=== PATIENT | female | born 1965 | race Caucasian/White ===

== ENCOUNTER 2022-10-15 12:05 | Emergency (ER) | payer MEDICARE, SELFPAY ==
[2022-10-15 12:12] VITALS: BP 92/68; PULSE 77; RESP 20; TEMP 36.7; O2SAT 100
--- NOTE | 2022-10-15 12:36 | ED.URI ---
HPI - URI/Sore Throat General Chief Complaint: Upper Respiratory Infection Stated Complaint: weak History of Present Illness HPI Narrative: Patient presents with a 3 day history of fever body aches generalized malaise. 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 No shortness of breath no chest pain. Related Data Home Medications Medication Instructions Recorded Confirmed dextroamphetamine-amphetamine ER PO 10/15/22 30 mg 24hr capsule,extend release diclofenac sodium 75 mg mg PO 10/15/22 tablet,delayed release hydroxychloroquine 200 mg tablet mg PO 10/15/22 methotrexate sodium 2.5 mg tablet mg 10/15/22 modafinil 200 mg tablet mg 10/15/22 omeprazole 20 mg capsule,delayed mg 10/15/22 release pregabalin 75 mg capsule mg 10/15/22 sertraline 50 mg tablet mg 10/15/22 tizanidine 4 mg tablet mg 10/15/22 tramadol 50 mg tablet mg 10/15/22 Allergies Allergy/AdvReac Type Severity Reaction Status Date / Time No Known Allergies Allergy Unverified 10/05/18 18:31 Review of Systems Review of Systems: CONSTITUTIONAL: Denies chills, or sweats. Reports fever and generalized body aches EYES: Denies visual changes, redness, or discharge. ENT: Denies otalgia. Reports nasal congestion runny nose and sore throat CARDIOVASCULAR: Denies chest pain, palpitations, or edema. RESPIRATORY: Denies dyspnea. Reports occasional cough GASTROINTESTINAL: Denies abdominal pain, nausea, vomiting, or diarrhea. GENITOURINARY: Denies dysuria or hematuria. SKIN: Denies rash or itching. MUSCULOSKELETAL: Denies back pain, joint pain, or myalgia. Reports generalized body aches NEUROLOGIC: Denies headache, numbness, or weakness. PSYCHIATRIC: Denies anxiety or depression. PMFSH Comments At time of signature, agree with nursing past medical, surgical, social and family history. There is no relevant family history pertinent to the presenting complaint Exam Narrative: The patient is a well-developed, well-nourished in no acute distress. SKIN: Skin is warm and dry without erythema, swelling or exudate. There is good turgor. No tenting. HEAD: Atraumatic. Normocephalic. No temporal or scalp tenderness. EYES: Moist and bright. Sclera and conjunctivae normal. No discharge. PERRLA. Extraocular motions intact. Gross visual acuity intact. EARS: Pinna is normal shape and contour. Clear external auditory canals. TM pearly ibarra with good cone of light, no erythema or suppuration. Bilateral cerumen noted no gross hearing deficit. NOSE: pink, moist mucosa with good air movement. Clear rhinorrhea without nasal flaring. Septum midline. Mouth: moist mucous membranes. THROAT; mild erythema noted to posterior oropharynx with moderate postnasal drainage. Without exudate or ulceration.. Uvula midline. Normal movement of soft palate. NECK: Supple and nontender with full range of motion without discomfort. No meningeal signs. LUNGS: Equal and bilateral breath sounds without wheezes, rales or rhonchi. CHEST: The chest wall is without retractions or use of accessory muscles. HEART: Has a regular rate and rhythm without murmur, gallops, click or rub. ABDOMEN: Soft, nontender with positive active bowel sounds. No rebound tenderness. EXTREMITIES: Without cyanosis, clubbing or edema. Equal 2+ distal pulses and 2 second capillary refill noted. NEUROLOGIC: alert, active, . The patient moves all extremities with normal muscle strength. Normal muscle tone is noted. Normal coordination is noted. NO focal neurological findings noted. Course Course Level of Care: Express Care Visit Vital Signs Vital signs: Vital Signs Temperature 36.7 C 10/15/22 12:12 Pulse Rate 77 10/15/22 12:12 Respiratory Rate 20 10/15/22 12:12 Blood Pressure 92/68 L 10/15/22 12:12 Pulse Oximetry 100 10/15/22 12:12 Oxygen Delivery Room Air 10/15/22 12:12 Temperature 36.7 C 10/15/22 12:12 Pulse Rate 77 10/15/22 12:12
== END 2022-10-15 12:48 | disposition home or self-care (01) ==
PROVIDERS: Emergency Provider Nurse Practitioner Family
DX: J10.1 Influenza due to other identified influenza virus with other respiratory manifestations (principal)
CPT/HCPCS: 87804; 99203; G0463

== ENCOUNTER 2024-09-05 17:10 | Emergency (ER) | payer MEDICARE, SELFPAY ==
--- NOTE | ~2024-09-05 | XR_ITS ---
XR wrist RT min 3V DATE: 09/05/2024 17:55 INDICATION: Lateral pain and swelling. History of rheumatoid arthritis. TECHNIQUE: 4 views COMPARISON: None FINDINGS: There is a suggestion of a subtle nondisplaced distal radial fracture. The distal ulna is intact. Normal alignment at the radiocarpal joint. No carpal bone fracture is evident. No erosive change or chondrocalcinosis is noted. IMPRESSION: Suggestion of subtle nondisplaced distal radial fracture; consider short-term follow-up r adiographs to confirm or exclude fracture Reviewed, dictated and finalized at location A. IMPRESSION: Suggestion of subtle nondisplaced distal radial fracture; consider short-term follow-up radiographs to confirm or exclude fracture
[2024-09-05 17:22] VITALS: BP 127/75; PULSE 94; RESP 16; TEMP 36.6; O2SAT 99
[2024-09-05 17:24] VITALS: BP 127/75; PULSE 94; RESP 16; TEMP 36.6; O2SAT 99
--- NOTE | 2024-09-05 17:29 | ED.UPPEXIN ---
HPI - Extremity Injury (Upper) General Chief Complaint: Extremity Injury, Upper Stated Complaint: Right Wrist Injury Time Seen by Provider: 09/05/24 17:29 Source: patient, RN notes reviewed and old records reviewed Mode of arrival: ambulatory Limitations: no limitations History of Present Illness HPI narrative: 59 year old female who presents to express care with complaints of stumbling over concrete slap at [employer] football game and falling onto her right hand and wrist 2 hours prior to arrival.Patient has noted swelling and bruising to the base of her right thumb an radial side of hand and wrist with some bruising noted. Patient has gold ring on thumb which she states that she has not been able to remove before injury and can't at this time refuses to have ring cut off was her fathers. Patient has strong radial pulse, is able to move all fingers on own power but thumb is limited does have history of rheumatoid arthritis MD complaint: injury to: right and wrist (radial aspect) Onset (ago): hour(s) (2) Other injuries: none Severity scale (1-10): 5 Treatments prior to arrival: cold therapy Related Data Home Medications Medication Instructions Recorded Confirmed dextroamphetamine-amphetamine ER PO 10/15/22 30 mg 24hr capsule,extend release diclofenac sodium 75 mg mg PO 10/15/22 tablet,delayed release modafinil 200 mg tablet mg 10/15/22 omeprazole 20 mg capsule,delayed mg 10/15/22 release pregabalin 75 mg capsule mg 10/15/22 sertraline 50 mg tablet mg 10/15/22 tizanidine 4 mg tablet mg 10/15/22 tramadol 50 mg tablet mg 10/15/22 Otc Vitamin D 09/05/24 Vitamin B12 09/05/24 colchicine 0.6 mg tablet mg 09/05/24 ferrous sulfate 325 mg (65 mg 325 mg PO DAILY 09/05/24 09/05/24 iron) tablet (Iron (ferrous sulfate)) folic acid 1 mg tablet 09/05/24 methylprednisolone 4 mg tablet mg 09/05/24 oxybutynin chloride 09/05/24 upadacitinib 15 mg tablet,extended 15 mg PO DAILY 09/05/24 09/05/24 release 24 hr (Rinvoq) Allergies Allergy/AdvReac Type Severity Reaction Status Date / Time No Known Allergies Allergy Unverified 09/05/24 17:24 Review of Systems Review of Systems: CONSTITUTIONAL: Denies fever, chills, or sweats. EYES: Denies visual changes, redness, or discharge. ENT: Denies rhinorrhea, congestion, sore throat, or otalgia. CARDIOVASCULAR: Denies chest pain, palpitations, or edema. RESPIRATORY: Denies cough or dyspnea. GASTROINTESTINAL: Denies abdominal pain, nausea, vomiting, or diarrhea. GENITOURINARY: Denies dysuria or hematuria. SKIN: Denies rash or itching. MUSCULOSKELETAL: Denies back pain, pain to right base of thumb, radial side of hand and wrist with swelling, or myalgia. NEUROLOGIC: Denies headache, numbness, or weakness. PSYCHIATRIC: Denies anxiety or depression. All systems reviewed & are unremarkable except as noted in HPI and below PMFSH Past Medical History Medical History (Updated 09/08/24 @ 14:30 by Julisa Martins NP) Anxiety and depression Fracture of right forearm GERD (gastroesophageal reflux disease) Narcolepsy Rheumatoid arthritis Surgical History Surgical History (Updated 09/08/24 @ 14:16 by Julisa Martins NP) H/O: hysterectomy History of left knee replacement Social History Social History (Updated 09/08/24 @ 14:23 by Julisa Martins NP) Smoking status: Current every day smoker Tobacco type: e-cigarettes/vaping Alcohol intake: unknown Substance use type: does not use Gender identity (if verbalized by the patient): Female Comments At time of signature, agree with nursing past medical, surgical, social and family history. There is no relevant family history pertinent to the presenting complaint Exam Narrative: GENERAL: Well-appearing, well-nourished, and in mild acute distress related to injury. HEAD: Normocephalic, atraumatic. EYES: PERRLA and EOMI. ENT: Nares clear, no rhinorrhea or epistaxis. Mucous membranes moist. NECK: Supple. no lymphadenopathy CHEST: Clear to auscultation. No respiratory distress SAo2 99% on room air HEART: Regular rate and rhythm. No murmur heard. Normal peripheral pulses. ABDOMEN: Soft, nontender, nondistended, normal active bowel sounds. EXTREMITIES: Normal range of motion. No edema.Exception noted to right base of thumb and radial side of hand and wrist with bruising and pain from fall. able to move fingers on own power with limited movement of thumb. Patient has strong right radial pulse, nail beds osei briskly denies any tingling or numbness to fingers. Unable to remove band on thumb refuses to have cut off states was her father's. SKIN: Warm, dry, no rash. NEURO: No focal deficits. Alert and oriented x3. Course Course Emergency Course: Patient is aware of diagnosis, understands and agrees to treatment plan.? Anticipatory guidance given.? Patient agrees to follow-up as directed and is aware of reasons to seek care at the emergency department. Portions of this record may have been created with voice recognition software Level of Care: Express Care Visit Vital Signs Vital signs: Vital Signs Temperature 36.6 C 09/05/24 17:22 Pulse Rate 94 09/05/24 17:22 Respiratory Rate 16 09/05/24 17:22 Blood Pressure 127/75 09/05/24 17:22 Pulse Oximetry 99 09/05/24 17:22 Oxygen Delivery Room Air 09/05/24 17:22 Temperature 36.6 C 09/05/24 17:24 Pulse Rate 94 09/05/24 17:24 Respiratory Rate 16 09/05/24 17:24 Blood Pressure 127/75 09/05/24 17:24 Pulse Oximetry 99 09/05/24 17:24 Oxygen Delivery Room Air 09/05/24 17:24 Reviewed Procedures Orthopedic Splinting/Casting wrist: Splinting/Casting Date: 09/05/24 Splinting/Casting Time: 18:44 Side: right Upper Extremity Injury Location: wrist Upper Extremity Immobilizer: volar splint Splint: customized in ED OCL: short arm Pre-Procedure Neuro Vascular Exam: normal Post-Procedure Neuro Vascular Exam: normal Other Orthopedic Equipment: other (sling) Additional Comments: Patient tolerated splinting of right wrist with volar short arm splint and arm placed in sling neuro-vascular intact MDM - Extremity Injury (Upper) Differential Diagnosis Differential diagnosis: Likely fracture of wrist, fracture of hand and other (thumb fracture, contusion to right hand) Medical Records Attestation: I reviewed the patient's medical records. Imaging Data Attestation: I personally reviewed and interpreted this imaging study as follows: My impression: subtle nondisplaced right distal radial fracture recommend x-ray follow up Radiologist's impression: [facility] [place] [address] [id number] XRay Report Signed Patient: Harriet Lr : 1965 MR#: [id number] Age: 59 Acct:[id number] Loc: EXP ADM Date: 09/05/24Attending Dr: Ordering Physician: Julisa Martins APRN Date of Service: 09/05/24 Procedure(s): XR wrist RT min 3V Accession Number(s): [id number] cc: Julisa Martins [employer]~ XR wrist RT min 3V DATE: 09/05/2024 17:55 INDICATION: Lateral pain and swelling. History of rheumatoid arthritis. TECHNIQUE: 4 views COMPARISON: None FINDINGS: There is a suggestion of a subtle nondisplaced distal radial fracture. The distal ulna is intact. Normal alignment at the radiocarpal joint. No carpal bone fracture is evident. No erosive change or chondrocalcinosis is noted. IMPRESSION: Suggestion of subtle nondisplaced distal radial fracture; consider short-term follow-up radiographs to confirm or exclude fracture Reviewed, dictated and finalized at location A. Dictated By: Barry Álvarez MD 09/05/24 1802 Signed By: <Electronically signed by Barry Álvarez MD in OV> Critical Care Time Critical Care Time Critical Care Time: No Discharge Plan Discharge Clinical Impression: Fracture of wrist Qualifiers: Encounter type: initial encounter Fracture type: closed Laterality: right Qualified Code(s): S62.101A - Fracture of unspecified carpal bone, right wrist, initial encounter for closed fracture Patient Disposition: Home, Self-Care Condition: Stable Instructions: Wrist Fracture in Adults (ED) Additional Instructions: orthopedic splint as directed for comfort until seen by Ortho Tylenol for lesser pain Ibuprofen regularly for the next 2-3 days for the inflammation Follow-up with orthopedic surgeon of her choice sees orthopedic MD at [facility] Follow-up with PCP if further problems or concerns Ice to the area 20-30 minutes 4-6 times a day Elevate above heart If your symptoms persist, change or worsen significantly before you can contact your personal physician then please, without delay, go to the emergency department for further evaluation. Follow-up with PCP in 7-10 days or sooner if needed disc of x-ray film and report given to patient Prescriptions: No Action tizanidine 4 mg tablet tramadol 50 mg tablet modafinil 200 mg tablet omeprazole 20 mg capsule,delayed release(DR/EC) diclofenac sodium 75 mg tablet,delayed release (DR/EC) PO dextroamphetamine-amphetamine 30 mg capsule,extended release 24hr PO sertraline 50 mg tablet pregabalin 75 mg capsule methylprednisolone 4 mg tablet folic acid 1 mg tablet colchicine 0.6 mg tablet ferrous sulfate [Iron (ferrous sulfate)] 325 mg (65 mg iron) Tablet 325 mg PO DAILY Rinvoq 15 mg Tablet Extended Release 24 Hr 15 mg PO DAILY Otc Vitamin D oxybutynin chloride Vitamin B12 Follow-up/Referrals: PHYSICIAN NOT ON STAFF,NONSTAFF [Primary Care Provider] - Time of Disposition: 18:50 Quality Xavier Coma Scale Eyes: Open Verbal: Oriented and Alert Motor: Follows Commands Xavier Coma Total Score: 15
== END 2024-09-05 18:52 | disposition home or self-care (01) ==
PROVIDERS: Emergency Provider Registered Nurse
DX: S62.101A Fracture of unspecified carpal bone, right wrist, initial encounter for closed fracture (principal); W01.0XXA Fall on same level from slipping, tripping and stumbling without subsequent striking against object, initial encounter; F17.290 Nicotine dependence, other tobacco product, uncomplicated; K21.9 Gastro-esophageal reflux disease without esophagitis; R06.9 Unspecified abnormalities of breathing; Z96.652 Presence of left artificial knee joint
CPT/HCPCS: 29125; 73110; 99214; A4565; G0463

== ENCOUNTER 2024-09-24 15:35 | Emergency (ER) | payer MEDICARE, SELFPAY ==
[2024-09-24 15:58] VITALS: BP 109/72; PULSE 94; RESP 18; TEMP 36.9; O2SAT 100
--- NOTE | 2024-09-24 16:23 | ED.LOWEXIN ---
HPI - Extremity Injury (Lower) General Chief Complaint: Extremity Injury, Lower Stated Complaint: Wound Check/Left Knee Time Seen by Provider: 09/24/24 16:23 Source: patient, RN notes reviewed and old records reviewed Mode of arrival: ambulatory Limitations: no limitations History of Present Illness HPI Narrative: 59-year-old female to [facility] Care with complaint of wound to left anterior knee. Patient reports history of total knee replacement in March. Patient states that she fell 2 weeks ago and broke her right wrist and required a small abrasion to left anterior knee lateral to surgical incision site. patient reports she has been keeping the abrasion clean and dry but that his gotten irritated with her paints rubbing against it. Patient states that yesterday she noticed increased redness, warmth and swelling. Patient also endorsing acute tenderness. Patient states that she called her orthopedic surgeon today and was told to just wait until her standing appointment next . Patient states she has to concern for infection and did not want to wait another week. Patient denies fever , drainage from wound, chills, allergies. Patient resting comfortably in exam room in no acute distress. Related Data Home Medications Medication Instructions Recorded Confirmed dextroamphetamine-amphetamine ER PO 10/15/22 30 mg 24hr capsule,extend release diclofenac sodium 75 mg mg PO 10/15/22 tablet,delayed release modafinil 200 mg tablet mg 10/15/22 omeprazole 20 mg capsule,delayed mg 10/15/22 release pregabalin 75 mg capsule mg 10/15/22 sertraline 50 mg tablet mg 10/15/22 tizanidine 4 mg tablet mg 10/15/22 tramadol 50 mg tablet mg 10/15/22 Otc Vitamin D 09/05/24 Vitamin B12 09/05/24 colchicine 0.6 mg tablet mg 09/05/24 ferrous sulfate 325 mg (65 mg 325 mg PO DAILY 09/05/24 09/05/24 iron) tablet (Iron (ferrous sulfate)) folic acid 1 mg tablet 09/05/24 methylprednisolone 4 mg tablet mg 09/05/24 oxybutynin chloride 09/05/24 upadacitinib 15 mg tablet,extended 15 mg PO DAILY 09/05/24 09/05/24 release 24 hr (Rinvoq) Allergies Allergy/AdvReac Type Severity Reaction Status Date / Time No Known Allergies Allergy Unverified 09/05/24 17:24 Review of Systems Review of Systems: All systems reviewed & are unremarkable except as noted in HPI and below Constitutional: Constitutional: Reports no additional constitutional complaints Eyes: Eyes: Reports no additional eye complaints ENT: Reports system reviewed and no additional complaints, except as documented Cardiovascular: Cardiovascular: Reports no additional cardiovascular complaints, Denies chest pain and Denies dyspnea Respiratory: Respiratory: Reports no additional respiratory complaints, Denies cough and Denies dyspnea Musculoskeletal: Musculoskeletal: Reports no additional musculoskeletal complaints Integumentary/Breasts: Skin/Breast: Reports as per HPI and Reports wounds Neurologic: Reports system reviewed and no additional complaints, except as documented Psychiatric: Psychiatric: Reports no additional psychiatric complaints PMF Past Medical History Medical History Anxiety and depression Fracture of right forearm GERD (gastroesophageal reflux disease) Narcolepsy Rheumatoid arthritis Surgical History Surgical History H/O: hysterectomy History of left knee replacement Social History Social History Smoking status: Current every day smoker Tobacco type: e-cigarettes/vaping Alcohol intake: unknown Substance use type: does not use Gender identity (if verbalized by the patient): Female Comments At the time of my signature, I reviewed and agree with the nursing past medical, surgical, social, and family history. There is no relevant family history pertinent to the patient complaint. Exam Const: General: cooperative, no acute distress, well developed, alert, well groomed and well nourished Nutritional Appearance: well nourished Orientation/consciousness: patient oriented x3 Limitations: no limitations HENMT: Head: normal to inspection Ears: external ears normal Face/Nose/Sinus: Normal external nose present, Normal nares present, normal facial exam, No erythema and No edema Face and sinus: normal facial exam, no erythema and no edema Mouth: Yes Normal oral and palatal mucosa present Eyes: General: appearance normal, both eyes and all related structures Neck: Neck: normal visual inspection, full ROM and no meningeal signs Lymphatic: no lymphadenopathy noted and no lymphedema noted Chest: Chest palpation & inspection: normal inspection of the chest Resp: Effort & Inspection: normal respiratory effort and able to speak in complete sentences Auscultation: clear to auscultation bilaterally Cardio: Jugular venous distension: no JVD Rate: regular rate Rhythm: regular rhythm Back/Spine/Pelvis: Cervical Spine: cervical ROM normal Skin: General skin exam: normal color and wounds noted Wounds: wounds noted left anterior knee Other: 0.5 cm abrasion noted to left lateral knee. 9 cm wide by 8.5 cm high surrounding area of erythema,, swelling, tenderness. No drainage or streaking noted. Neuro: General: patient oriented x3, gait normal, moves all extremities and no meningeal signs Speech: normal speech Gait exam (Neuro): Normal gait present Extrem: General: normal to inspection, full ROM and capillary refill normal Psych: Appearance: grossly normal and well kempt Course Course Emergency Course: Some parts of this dictation were generated by voice recognition software and may contain typographical and/or grammatical inaccuracies. Level of Care: Express Care Visit Vital Signs Vital signs: Vital Signs Temperature 36.9 C 09/24/24 15:58 Pulse Rate 94 09/24/24 15:58 Respiratory Rate 18 09/24/24 15:58 Blood Pressure 109/72 09/24/24 15:58 Pulse Oximetry 100 09/24/24 15:58 Temperature 36.9 C 09/24/24 15:58 Pulse Rate 94 09/24/24 15:58 Respiratory Rate 18 09/24/24 15:58 Blood Pressure 109/72 09/24/24 15:58 Pulse Oximetry 100 09/24/24 15:58 reviewed MDM - Extremity Injury (Lower) MDM Narrative Medical decision making narrative: 59-year-old female to [facility] Care with complaint of wound to left anterior knee. Patient reports history of total knee replacement in March. Patient states that she fell 2 weeks ago and broke her right wrist and required a small abrasion to left anterior knee lateral to surgical incision site. patient reports she has been keeping the abrasion clean and dry but that his gotten irritated with her paints rubbing against it. Patient states that yesterday she noticed increased redness, warmth and swelling. Patient also endorsing acute tenderness. Patient states that she called her orthopedic surgeon today and was told to just wait until her standing appointment next . Patient states she has to concern for infection and did not want to wait another week. Patient denies fever , drainage from wound, chills, allergies. Patient resting comfortably in exam room in no acute distress. On exam,0.5 cm abrasion noted to left lateral knee. 9 cm wide by 8.5 cm high surrounding area of erythema,, swelling, tenderness. No drainage or streaking noted. Patient is sitting comfortably in exam room nontoxic in appearance. Patient appropriate for outpatient treatment and follow-up. Discharge instructions reviewed with patient, as well as provided in writing per nursing staff. The instructions also include specific and strict return/GO TO THE ER as well as f/u information. All questions have been answered, and the patient deny any further questions with discharge and discharge plan. Some parts of this dictation were generated by voice recognition software and may contain typographical and/or grammatical inaccuracies. Differential Diagnosis Differential diagnosis: Likely ankle sprain and strain, acute internal derangement of knee, fracture of femur, fracture of hip, puncture wound of foot, fracture of toe and ankle fracture Discharge Plan Discharge Clinical Impression: Cellulitis Patient Disposition: Home, Self-Care Condition: Stable Instructions: Cellulitis (ED) Additional Instructions: please keep wound clean, dry please review attached instructions regarding cellulitis and implement suggestions please finish entire course of antibiotic treatment for new or worsening symptoms please go directly to the emergency department Prescriptions: New clindamycin HCl 150 mg capsule 450 mg PO TID 10 Days Qty: 90 0RF No Action tizanidine 4 mg tablet tramadol 50 mg tablet modafinil 200 mg tablet omeprazole 20 mg capsule,delayed release(DR/EC) diclofenac sodium 75 mg tablet,delayed release (DR/EC) PO dextroamphetamine-amphetamine 30 mg capsule,extended release 24hr PO sertraline 50 mg tablet pregabalin 75 mg capsule methylprednisolone 4 mg tablet folic acid 1 mg tablet colchicine 0.6 mg tablet ferrous sulfate [Iron (ferrous sulfate)] 325 mg (65 mg iron) Tablet 325 mg PO DAILY Rinvoq 15 mg Tablet Extended Release 24 Hr 15 mg PO DAILY Otc Vitamin D oxybutynin chloride Vitamin B12 Follow-up/Referrals: PHYSICIAN NOT ON STAFF,NONSTAFF [Primary Care Provider] -
== END 2024-09-24 16:43 | disposition home or self-care (01) ==
PROVIDERS: Emergency Provider Nurse Practitioner Family
DX: L03.116 Cellulitis of left lower limb (principal)
CPT/HCPCS: 99213; G0463